=== PATIENT | male | born 1950 | race Caucasian/White ===

== ENCOUNTER 2016-12-06 14:16 | Day surgery (SDC) | payer OTHER ==
[~2016-12-06] VITALS: Ht 177.8 cm; Wt 76.2 kg
[2016-12-06] MEDS ORDERED: DORYX50 MG PO (14:51)
[2016-12-06 15:05] VITALS: BP 168/88
[2016-12-06 22:45] VITALS: BP 173/85
== END 2016-12-06 23:15 | disposition home or self-care (01) ==
LOC: SDC 14:16
DX: H33.022 Retinal detachment with multiple breaks, left eye (principal); H26.9 Unspecified cataract; F17.200 Nicotine dependence, unspecified, uncomplicated
CPT/HCPCS: 93005; J0690; J1170; J1885; J3010; J3300

== ENCOUNTER 2017-05-12 06:13 | Day surgery (SDC) | payer OTHER ==
[~2017-05-12] VITALS: Ht 177.8 cm; Wt 72.6 kg
[~2017-05-12 06:13] MED LIST: AMBIEN5 MG PO; DORYX50 MG PO; TYLENOL EXTRA500 MG PO
[2017-05-12 07:02] VITALS: BP 131/77
[2017-05-12 10:30] VITALS: BP 164/93
[2017-05-12 11:27] VITALS: BP 170/88
== END 2017-05-12 11:45 | disposition home or self-care (01) ==
LOC: SDC 06:13
DX: H33.42 Traction detachment of retina, left eye (principal); H35.372 Puckering of macula, left eye; I10 Essential (primary) hypertension; Z87.891 Personal history of nicotine dependence
CPT/HCPCS: J0690; J0713; J2250; J2405; J3010; J3300; J7120